=== PATIENT | male | born 1965 | race Caucasian/White ===

== ENCOUNTER 2020-07-15 20:09 | Emergency (ER) | payer BC ==
--- NOTE | 2020-07-15 20:28 | ED Physician Documentation ---
History of Present Illness - Stated complaint Stated Complaint: LT SIDED FACIAL NUMBNESS - Chief complaint Chief Complaint: Heent - History obtained from History obtained from: Patient - Additonal information Additional information: 55-year-old man with history of TIA 1 year ago presenting with numbness, high blood pressure, GERD, presents with left eye weakness and pain as well as left mouth tingling starting at 5AM this morning, constant, gradually improving, associated with left posterior headache pressure that started just prior to arrival that is mild, nonradiating, now resolved. Patient denies other deficits and says that he felt normal yesterday. Denies vision changes. He does not currently have a neurologist. Review of Systems Ten Systems: 10 systems reviewed and negative Eyes: reports: Irritation, Other (L eyelid weakness) Cardiac: denies: Chest pain / pressure Respiratory: denies: Dyspnea GI: denies: Nausea Neurologic: reports: Headache. denies: Focal weakness, Numbness, Difficulty speaking, Confused, LOC PD PAST MEDICAL HISTORY - Present Medications Home Medications: Ambulatory Orders Medication Instructions Recorded Confirmed Aspirin [Aspirin EC] 81 mg PO DAILY 07/15/20 07/15/20 Atorvastatin Calcium 40 mg PO DAILY 07/15/20 07/15/20 Lisinopril [Zestril] 20 mg PO DAILY 07/15/20 07/15/20 Nortriptyline [Pamelor] 50 mg PO DAILY 07/15/20 07/15/20 Omeprazole Magnesium 20 mg PO DAILY 07/15/20 07/15/20 - Allergies Allergies/Adverse Reactions: Allergies Allergy/AdvReac Type Severity Reaction Status Date / Time No Known Drug Allergies Allergy Verified 07/15/20 20:29 PD ED PE NORMAL - Vitals Vital signs reviewed: Yes - General General: Alert and oriented X 3, No acute distress, Well developed/nourished - HEENT HEENT: Atraumatic, PERRL, EOMI, Moist mucous membranes, Pharynx benign - Neck Neck: Supple, no meningeal sign - Cardiac Cardiac: RRR - Respiratory Respiratory: No respiratory distress, Clear bilaterally - Abdomen Abdomen: Non tender, Non distended - Back Back: No CVA TTP - Derm Derm: Normal color, Warm and dry - Extremities Extremities: No deformity - Neuro Neuro: Alert and oriented X 3, 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 NIHSS 0) - Psych Psych: Normal mood, Normal affect Results - Vitals Vitals: Vital Signs - 24 hr 07/15/20 07/15/20 07/15/20 20:18 20:24 22:24 Temperature 36.4 C L Heart Rate 104 H 89 87 Respiratory 18 24 23 Rate Blood Pressure 168/108 H 168/108 H 130/82 H O2 Saturation 100 100 98 Oxygen O2 Source Room air - Labs Labs: Laboratory Tests 07/15/20 07/15/20 20:28 20:28 WBC 12.4 H RBC 4.83 Hgb 15.2 Hct 45.2 MCV 93.6 MCH 31.5 H MCHC 33.6 RDW 11.9 L Plt Count 236 MPV 9.4 Neut # (Auto) 6.1 Lymph # (Auto) 4.5 H [place] # (Auto) 1.0 Eos # (Auto) 0.6 Baso # (Auto) 0.1 Absolute Nucleated RBC 0.00 Nucleated RBC % 0.0 Sodium 135 Potassium 3.8 Chloride 95 L Carbon Dioxide 29 Anion Gap 11.0 BUN 23 H Creatinine 1.0 Estimated GFR (MDRD) 78 L Glucose 106 H Calcium 9.3 Total Bilirubin 0.7 AST 52 H ALT 61 H Alkaline Phosphatase 75 Total Protein 8.1 Albumin 4.2 Globulin 3.9 Albumin/Globulin Ratio 1.1 Lipase 33 PD MEDICAL DECISION MAKING - ED course ED course: 8:15pm - on arrival patient was immediately evaluated and determined to be outside the window for tpa and thrombectomy. In addition, he has mild symptoms of L eye pain/weakness and L occipital headache without objective findings on exam. NIHSS 0. Will obtain CT and CTA and likely may follow up as an outpatient. CT/CTA negative for stroke. d/w patient and daughter re: need for f/u with primary MD Kami Espino family doctor at [facility] - Dr. Harmon for outpatient MRI. patient is aware of his L maxillary cyst as well. Already on TIA discharge meds. I did offer transfer to [place] for MRI but they would prefer to f/u outpatient. strict return precautions given. Medication list: omeprazole, nortryptaline, atorvastatin 40, asa 81, h ydrochlorothiazide, lisinopril. Departure - Departure Disposition: 01 Home, Self Care Clinical Impression: Eye muscle weakness, History of TIA (transient ischemic attack) Condition: Good Instructions: ED Transient Ischemic Attack Comments: You were seen in the emergency department for weakness of the left eyelid and sensation of weakness around the left side of the mouth. Your physical exam in the emergency department did not show any neurological issues and your CT of your head and CT angio of your head and neck were normal, except for a cyst in your left maxillary sinus. You should follow-up with Dr. Harmon as an outpatient to have a follow-up MRI. Continue to take your TIA medications. Return to the emergency department if you develop any of the symptoms of stroke that we discussed or any new or worsening symptoms.
[2020-07-15 20:32] LABS: BASOPHILS # (AUTO) 0.1 10^3/uL (0.0-0.1); BASOPHILS % (AUTO) 0.7 %; EOSINOPHILS # (AUTO) 0.6 10^3/uL (0.0-0.7); EOSINOPHILS % (AUTO) 4.8 %; HCT - HEMATOCRIT 45.2 % (42.0-52.0); HGB - HEMOGLOBIN 15.2 g/dL (14.0-18.0); LYMPHOCYTES # (AUTO) 4.5 10^3/uL (1.5-3.5); LYMPHOCYTES % (AUTO) 36.2 %; MEAN CORPUSCULAR HEMOGLOBIN 31.5 pg (27.0-31.0); MEAN CORPUSCULAR HGB CONC 33.6 g/dL (32.0-36.0); MEAN CORPUSCULAR VOLUME 93.6 fL (80.0-94.0); MEAN PLATELET VOLUME 9.4 fL (7.4-11.4); MONOCYTES % (AUTO) 8.3 %; NEUTROPHILS # (AUTO) 6.1 10^3/uL (1.5-6.6); NEUTROPHILS % (AUTO) 49.4 %; PLT - PLATELET COUNT 236 10^3/uL (130-450); RED BLOOD COUNT 4.83 10^6/uL (4.70-6.10); RED CELL DISTRIBUTION WIDTH 11.9 % (12.0-15.0); WHITE BLOOD COUNT 12.4 x10^3/uL (4.8-10.8)
[2020-07-15] MEDS ORDERED: IOVERSOL 320 100 ML VIAL IVP ONE ×2 (20:54→21:23)
[2020-07-15 20:58] LABS: ALBUMIN 4.2 g/dL (3.2-5.5); ALBUMIN/GLOBULIN RATIO 1.1 (1.0-2.2); BILIRUBIN,TOTAL 0.7 mg/dL (0.2-1.0); CALCIUM 9.3 mg/dL (8.5-10.3); POTASSIUM 3.8 mmol/L (3.5-5.0); TOTAL PROTEIN 8.1 g/dL (6.7-8.2)
--- NOTE | 2020-07-15 22:00 | CT Report ---
PROCEDURE: ANGIO HEAD W/WO INDICATIONS: L eye weakness, pain, L occipital headache CONTRAST: IV CONTRAST: Optiray 320 ml: 80 PO CONTRAST: *NO PO CONTRAST TECHNIQUE: Precontrast 4.5 mm thick angled axial sections acquired from the foramen magnum to the vertex. Afte r the administration of intravenous contrast, 1 mm thick sections acquired through the [place] of [place] is. Postcontrast 4.5 mm thick sections then re-acquired from the foramen magnum to the vertex. 3-di mensional xvyhozz-hrefvuxah-usctgeixxe (MIP) and/or volume rendering reformats were acquired of the c entral intracranial vasculature. For radiation dose reduction, the following was used: automated ex posure control, adjustment of mA and/or kV according to patient size. COMPARISON: CT neck angiogram, 07/15/2020. FINDINGS: Image quality: Excellent. Anterior circulation: Intracranial internal carotid arteries are normal in size and flow. The flow within the paired anterior cerebral arteries is normal and symmetric. The flow within the middle cer ebral arteries is normal and symmetric. The anterior communicating artery is seen. No aneurysms are seen. Posterior circulation: Visualized portions of the vertebral arteries demonstrate normal caliber, and join to form a normal appearing basilar artery. Flow within the posterior cerebral arteries is norm al and symmetric. No aneurysms are seen. CSF spaces: Ventricles are normal in size and shape. Basal cisterns are patent. No extra-axial flu id collections. Brain: No midline shift. No intracranial bleeds or masses. [place]-white matter interface appears int act. Skull and face: Calvarium and facial bones appear intact, without suspicious lesions. Sinuses: There is a mucous retention cyst or polyp in the left maxillary sinus. The mastoids are christie r. IMPRESSION: 1. No acute intracranial abnormality. 2. No high-grade stenosis or occlusion in anterior or posterior circulations. 3. A mucous retention cyst or polyp in the left maxillary sinus. Reviewed by: Joelle Conklin MD on 07/15/2020 9:58 PM PDT Approved by: Joelle Conklin MD on 07/15/2020 9:58 PM PDT Station ID: [id number]
--- NOTE | 2020-07-15 22:00 | CT Report ---
PROCEDURE: ANGIO NECK W INDICATIONS: L occipital WILLARD, L eye pain, weakness CONTRAST: IV CONTRAST: Optiray 320 ml: 80 PO CONTRAST: *NO PO CONTRAST TECHNIQUE: After the administration of intravenous contrast, 1.5 mm axial sections acquired from the aortic arch to the [place] of [place]. Coronal 3-D maximum intensity projection (MIP) and/or volume rendering ref ormats were then performed. For radiation dose reduction, the following was used: automated exposur e control, adjustment of mA and/or kV according to patient size. COMPARISON: CT head angiogram, 07/15/2020. FINDINGS: Image quality: Excellent. Carotid system: The great vessels demonstrate a conventional anatomy as they arise from the aortic a rch. The origins of the common carotid arteries appear patent. The common carotid arteries demonstr ate normal calibers and courses. The bifurcation regions appear normal bilaterally. The internal ca rotid arteries demonstrate normal caliber and course. Posterior circulation: The origins of the vertebral arteries appear patent. The more superior porti ons of the vertebral arteries demonstrate normal course and caliber. They join to form a normal appe aring basilar artery. Soft tissues: Visualized neck soft tissues demonstrate no suspicious abnormalities. The thyroid gla nd is normal in size. Bones: No suspicious bony lesions. Visualized cervical spine appears normally aligned. Mild-to-mo derate degenerative disc disease at C5-C6 and C6-C7. There is a mucous retention cyst in the left max illary sinus. IMPRESSION: 1. No occlusion or high-grade stenosis stenosis in cervical carotid arteries bilaterally. 2. No occlusion or hemodynamic stenosis in cervical vertebral arteries bilaterally. The estimate of stenosis included in the report of the imaging study was calculated using the NASCET method. Reviewed by: Joelle Conklin MD on 07/15/2020 9:59 PM PDT Approved by: Joelle Conklin MD on 07/15/2020 9:59 PM PDT Station ID: [id number]
[2020-07-15 22:25] VITALS: BP 130/82
== END 2020-07-15 22:49 | disposition home or self-care (01) ==
LOC: ED 20:09
DX: M62.81 Muscle weakness (generalized) (principal); Z86.73 Personal history of transient ischemic attack (TIA), and cerebral infarction without residual deficits; M27.40 Unspecified cyst of jaw
CPT/HCPCS: 36415; 70496; 70498; 80053; 83690; 85025; 93005; 99284; Q9967